=== PATIENT | female | born 1960 | race Two or more races ===

== ENCOUNTER 2018-04-10 01:52 | Emergency (ER) | payer OTHER ==
[~2018-04-10] VITALS: Ht 160 cm; Wt 59.4 kg
[2018-04-10] MEDS ORDERED: VITAMINS (02:13)
[2018-04-10 02:31] VITALS: BP 126/86
[2018-04-10] MEDS ORDERED: IBUPROFEN600 MG ORAL (02:33)
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
== END 2018-04-10 02:36 | disposition home or self-care (01) ==
LOC: EMR 02:07
DX: T14.8XXA Other injury of unspecified body region, initial encounter (principal); Y09 Assault by unspecified means; Y92.512 Supermarket, store or market as the place of occurrence of the external cause; F11.20 Opioid dependence, uncomplicated; M54.2 Cervicalgia; M54.9 Dorsalgia, unspecified
CPT/HCPCS: 99283